=== PATIENT | male | born 1935 | race Caucasian/White ===

== ENCOUNTER 2019-02-14 08:25 | Day surgery (SDC) | payer OTHER ==
--- NOTE | 2019-02-13 13:15 | EKG ---
Test Date: 2019-02-13 Test Time: 12:44:44 Spool Fixer: DAR MEASUREMENT RESULTS: Intervals: Rate: 55 DC: 226 QRSD: 134 QT: 490 QTc: 468 Gays: P: 80 DC: 226 QRS: 7 T: 86 INTERPRETIVE STATEMENTS: Sinus bradycardia with 1st degree AV block with premature supraventricular complexes Left bundle branch block Abnormal ECG Compared to ECG 03/10/1998 12:52:00 Atrial premature complex(es) now present First degree AV block now present Left bundle-branch block now present Sinus rhythm no longer present Left-axis deviation no longer present Myocardial infarct finding no longer present Electronically Signed On 02-13-19 13:15:17 [employer] by Philippe Maradiaga
--- NOTE | 2019-02-13 13:41 | RAD REPORT ---
EXAM DESCRIPTION: RAD - Chest Pa And Lat (2 Views) - 02/13/2019 1:33 pm CLINICAL HISTORY: preop Chest pain. COMPARISON: Chest Pa And Lat (2 Views) dated 05/11/2016; CHEST PA AND LAT 2 VIEW dated 08/13/2013; CH[facility]O ST PA AND LAT 2 VIEW dated 06/10/2011 TECHNIQUE: PA and lateral views of the chest were obtained. FINDINGS: The lungs are hyperexpanded compatible with COPD. The heart is upper limit of normal in si ze. No fracture or aggressive bony process. IMPRESSION: COPD without acute process identified.
[2019-02-13 14:00] LABS: Absolute Lymphocytes (CBC) 1.6 K/uL (0.7-4.9); Basophils % 0.6 % (0-1.3); Hematocrit 40.6 % (39.6-49.0); Lymphocytes % 16.3 % (15.3-44.8); MPV 8.7 fL (7.6-11.3); RBC Red Blood Cell Count 4.42 M/uL (4.33-5.43)
[2019-02-13 14:03] LABS: BUN Blood Urea Nitrogen 14 mg/dL (7-18); Bicarbonate 28 mmol/L (21-32); Glucose Level 108 mg/dL (74-106); Potassium 4.5 mmol/L (3.5-5.1); Sodium Level 135 mmol/L (136-145)
[~2019-02-14 08:25] MED LIST: CEFAZOLIN/SWI 1gm 1 GM/10 ML SYR IVP SCH; CIPROFLOXACIN 400mg IV 400 MG/200 ML BAG IV SCH
[2019-02-14] MEDS ORDERED: CIPROFLOXACIN 400mg IV 400 MG/200 ML BAG IV ONE (09:17)
[2019-02-14] MEDS ORDERED: NA CHLORIDE 0.9% 1,000 ML ONE (09:17)
[2019-02-14] MEDS ORDERED: PROPOFOL 200 MG/20 ML VIAL IV ONE ×2 (09:33→10:29)
[2019-02-14] MEDS ORDERED: LIDOCAINE 2% MPF 5 ML VIAL ONE (09:35)
[2019-02-14] MEDS ORDERED: FENTANYL CITR 100 MCG/2 ML ONE ×2 (09:35→10:29)
[2019-02-14] MEDS ORDERED: LIDOCAINE 1% MPF 5 ML VIAL ONE (10:30)
[2019-02-14] MEDS ORDERED: KETOROLAC 30 MG/ML INJ ONE (10:51)
[2019-02-14] MEDS ORDERED: ONDANSETRON 4 MG/2 ML VIAL ONE (10:51)
--- NOTE | 2019-02-14 11:40 | P.BOP ---
Preoperative diagnosis: perianal pain Postoperative diagnosis: same, perianal ulcer, perianal skin and anoderm dermatitis Primary procedure: EUA, Anoscopy, Rigid proctoscopy, Excisional biopsy of perianal ulcer Estimated blood loss: <5cc Specimen: ulcer bx Findings: see dictation Anesthesia: General Complications: None Transferred to: Recovery Room Condition: Good
[2019-02-14] MEDS ORDERED: CODEINE 30MG/APAP 300MG TAB ONE (13:23)
[2019-02-14 14:18] VITALS: BP 130/60; TEMP 98.1; O2SAT 96
--- NOTE | 2019-02-14 23:25 | OP ---
Date of Procedure: 02/14/2019 Surgeon: Juan Chang MD Preoperative Diagnosis: Perianal pain, perianal bulging. Postoperative Diagnosis: Perianal ulcer, perianal fissure. Patient has also anoderm dermatitis circ umferentially. Procedures: Examination under anesthesia, anoscopy, rigid proctoscopy, excision biopsy of perianal u lcer/fissure. Estimated Blood Loss: Less than 5 mL. Findings: Patient has circumferential inflammation of the anoderm and goes about 2 cm away from the anus, dermatitis present. In one of that area patient has a fissure with a small ulcer. We took a b iopsy of that area. Patient has internal and external hemorrhoids, not bleeding at this time, small, not prolapsed, and not thrombosed at this moment. Indications: This is the case of an 84-year-old patient with perianal pain, discomfort, pain. The p atient has been having some diarrhea, had colonoscopy done recently, found some hemorrhoids, but then this time he has perianal tenderness, burn every time he goes to the restroom, and difficult to visu oseas in my office, so we scheduled him for examination under anesthesia, anoscopy, rigid proctoscopy , possible hemorrhoidectomy since we do not know exactly the etiology of his pain. Benefits, alterna tives, and risks were fully explained, which include, but are not limited to infection, bleeding, dam age to adjacent structures, anesthesia complications, bowel perforation, NC, and even . He also understands this may not relieve any symptoms. He might need more than one surgical intervention. He understood, signed the consent. Description Of Procedure: Patient was brought to the operating room, placed in supine position. Ane sthesia was done without complication. The patient was placed in lithotomy position with proper prot ection. The rectal examination was done with the findings discussed above. Then, we proceeded to pl romario a rigid proctoscopy all the way about 15 cm. We noticed some internal and external hemorrhoids, but they are not enlarged thrombosed at this moment or even bleeding, but we noticed it is about 2 cm from the anoderm involving part of a dentate line there is this dermatitis present and at one point posterolateral, patient has small ulcer like a fissure associated with it. Obviously, we cleaned the area. We took a biopsy of that area, excised that tissue to be sent to the pathology to see if it c an help us with etiology of the inflammation of that region. We did not proceed to do hemorrhoids at this moment. At this moment, they are not the one causing this problem. Anoscope was used to help in this biopsy since we can see through the window of anoscope the perianal region. The patient luigi rated the procedure well. The specimen sent to the pathologist. The area was covered with sterile d ressings after closing some of the anoderm with a 3-0 chromic. Patient tolerated the procedure well. Patient was sent to Recovery in stable condition. MALIK/FERN Voice ID: [id number] Report ID: [id number]
--- NOTE | 2019-02-14 23:25 | DS ---
Date of Discharge: 02/14/2019 Diagnoses: Perianal pain, perianal dermatitis, anoderm dermatitis, and fissure, ulcer perianal. Procedures: EUA, anoscopy, rigid proctoscopy, excisional biopsy of perianal ulcer/fissure. Disposition: Home. Activity: As tolerated. No heavy lifting. Followup: Follow up in my office in 1 week. Call for appointment, [phone]. Sitz baths 4 times a d ay after every bowel movement. Patient once again advised to see the GI doctor to try to control the diarrhea in this case that may be affecting the perianal region too. Discharge Medications: See orders. MALIK/MODL Voice ID: [id number] Report ID: [id number]
== END 2019-02-14 14:10 | disposition home or self-care (01) ==
LOC: OR 08:25
PROVIDERS: ATTEND Surgery
PROC: 0DBQXZX Excision of Anus, External Approach, Diagnostic (ICD-10-PCS; 2019-02-14)
PROC: 0DJD8ZZ Inspection of Lower Intestinal Tract, Via Natural or Artificial Opening Endoscopic (ICD-10-PCS; principal; 2019-02-14 10:30)
DX: K60.2 Anal fissure, unspecified (principal); E11.9 Type 2 diabetes mellitus without complications; I10 Essential (primary) hypertension; G47.33 Obstructive sleep apnea (adult) (pediatric); E78.00 Pure hypercholesterolemia, unspecified; Z88.0 Allergy status to penicillin; Z80.3 Family history of malignant neoplasm of breast; Z80.0 Family history of malignant neoplasm of digestive organs; Z83.3 Family history of diabetes mellitus; Z82.49 Family history of ischemic heart disease and other diseases of the circulatory system
CPT/HCPCS: 93005; 85025; 80048; 36415; 82947 ×2; 88305; 71046; 45300; 46999; J2704; J3010; J7030; J2405; J0744

== ENCOUNTER 2020-03-06 09:26 | Emergency (ER) | payer OTHER ==
[2020-03-06] MEDS ORDERED: PROMETHAZINE INJ 25 MG/ML AMP ONE (09:27)
[2020-03-06] MEDS ORDERED: NA CHLORIDE 0.9% 1,000 ML ONE (09:27)
[2020-03-06] MEDS ORDERED: EPINEPHrine 1 MG/10 ML SYR IV ONE (09:27)
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
== END 2020-03-06 11:26 ==
LOC: ER 09:26
PROC: 5A12012 Performance of Cardiac Output, Single, Manual (ICD-10-PCS; principal; 2020-03-06)
DX: I46.9 Cardiac arrest, cause unspecified (principal); V47.5XXA Car driver injured in collision with fixed or stationary object in traffic accident, initial encounter; I10 Essential (primary) hypertension; Z88.0 Allergy status to penicillin; Z85.46 Personal history of malignant neoplasm of prostate
CPT/HCPCS: 96374; 92950; 99285; J2550; J0171; J7030